=== PATIENT | female | born 1945 | race Hispanic/Latino ===

== ENCOUNTER 2023-01-31 15:39 | Emergency (ER) | payer MEDICARE, OTHER ==
[~2023-01-31] VITALS: Ht 142.2 cm; Wt 55.3 kg
[2023-01-31] MEDS ORDERED: CLONIDINE HCL 0.2 MG TAB PO ONE (16:15)
[2023-01-31] MEDS ORDERED: SODIUM CHLORIDE 0.9% 1000ML 1,000 ML ONE (17:27)
[2023-01-31] MEDS ORDERED: SODIUM CHLORIDE 0.9% 1000ML 1,000 ML IV ONE (17:30)
[2023-01-31] MEDS ORDERED: POTASSIUM CHLORIDE 20 MEQ TAB CR PO ONE (18:37)
[2023-01-31 18:41] VITALS: O2SAT 96
[2023-01-31] MEDS ORDERED: POTASSIUM CHLORIDE 10MEQ EA PO ONE (18:45)
[2023-01-31 18:49] VITALS: BP 117/59; PULSE 58; RESP 17
== END 2023-01-31 18:52 | disposition home or self-care (01) ==
LOC: FSED 15:43
DX: R42 Dizziness and giddiness (principal); I16.9 Hypertensive crisis, unspecified; I10 Essential (primary) hypertension
CPT/HCPCS: 70450; 80053; 81003; 85025; 99283; J7030